=== PATIENT | female | born 1980 | race Caucasian/White ===

== ENCOUNTER 2019-02-12 18:43 | Inpatient (IN) | payer MEDICAID ==
[~2019-02-12] VITALS: Ht 162.6 cm; Wt 77.0 kg
[2019-02-13] VITALS (12 sets, daily range): BP systolic 89–120; BP diastolic 49–81
[2019-02-13] MEDS ORDERED: SODIUM CHLORIDE 0.9% 1,000 ML IVB ONE (00:33)
[2019-02-13 01:05] LABS: Alanine Aminotransferase 13 U/L (13-56); Albumin 3.3 g/dL (3.4-5.0); Anion Gap 11 (5-15); Aspartate Aminotransferase 12 U/L (15-37); BUN/Creatinine Ratio 12.5; Blood Urea Nitrogen 8 mg/dL (7-18); Calcium 7.9 mg/dL (8.5-10.1); Carbon Dioxide 22 mmol/L (21-32); Chloride 108 mmol/L (98-107); GFR African American 132 mL/min; GFR Non-African American 109 mL/min; Glucose 93 mg/dL (74-106); Potassium 3.4 mmol/L (3.5-5.1); Sodium 141 mmol/L (136-145)
[2019-02-13 01:07] LABS: Alkaline Phosphatase 83 U/L (45-117); Bilirubin, Total 0.5 mg/dL (0.2-1.0)
[2019-02-13 01:19] LABS: Lymphocytes # (auto) 1.4 uL; Nucleated Red Blood Cells % 0.2 %
[2019-02-13 01:20] LABS: Basophils # (auto) 0.5 uL; Basophils % (auto) 5.9 % (0.0-2.0); Eosinophils # (auto) 0.3 uL; Eosinophils % (auto) 3.8 % (0.0-7.0); Hematocrit 20.9 % (36.0-46.0); Lymphocytes % (auto) 16.9 % (10.0-50.0); Mean Corpuscular Hemoglobin 16.8 pg (28.0-32.0); Mean Corpuscular Hgb Conc. 26.9 g/dL (32.0-36.0); Mean Corpuscular Volume 62.3 fL (80.0-100.0); Monocytes # (auto) 0.5 uL; Monocytes % (auto) 6.3 % (0.0-12.0); Neutrophils # (auto) 5.6 uL; Neutrophils % (auto) 67.1 % (37.0-80.0); Platelet Count (auto) 306 10^3/uL (140-450); Red Blood Cells 3.35 10^6/uL (4.0-5.20); White Blood Cell 8.4 10^3/uL (4.4-10.8)
[2019-02-13 01:27] LABS: Red Cell Distribution Width 22.5 % (11.8-14.3)
[2019-02-13 01:29] LABS: Hemoglobin 5.6 g/dL (12.2-16.2)
[2019-02-13] MEDS ORDERED: SODIUM CHLORIDE 0.9% 1,000 ML IV ONE (02:15)
[2019-02-13 03:10] LABS: Hematocrit 18.7 % (36.0-46.0)
[2019-02-13 03:37] LABS: Hemoglobin 5.2 g/dL (12.2-16.2)
[2019-02-13] MEDS ORDERED: diphenhdrAMINE HCL 25 MG CAP PO ONE (04:15)
[2019-02-13] MEDS ORDERED: POTASSIUM CHL 10 Meq TABLET PO ONE (05:00)
[2019-02-13] MEDS ORDERED: CALCIUM ACETATE 667 MG CAP PO ONE (05:00)
[2019-02-13] MEDS ORDERED: ONDANSETRON HCL 4 MG/2 ML VIAL IV PRN (06:15)
[2019-02-13] MEDS ORDERED: TEMAZEPAM 15 MG CAP PO PRN (06:15)
--- NOTE | 2019-02-13 08:30 | NUR ---
RECEIVED REPORT FROM [facility].
--- NOTE | 2019-02-13 08:38 | NUR ---
MS ADMIT FROM ER PT ARRIVED TO FLOOD VIA WHEEL CHAIR ACCOMPANIED BY ER REEL MAN. PT AWAKE AND ALERT. NO S/S OF ANY DISTRESS OR SOB. PT DENIES HAVING ANY PAIN AT THIS TIME. BED IN LOWEST AND LOCKED POSITION WITH SIDE RAILS UP X2. INSTRUCTED PT ON POC AND TO CALL FOR ASSIST PRN. WILL CONTINUE TO MONITOR FOR CHANGES Q1HR AND PRN.
[2019-02-13] MEDS: FAMOTIDINE 20 MG TAB PO SCH ×2 (10:04→21:38)
[2019-02-13 11:03] LABS: Hematocrit 28.1 % (36.0-46.0); Hemoglobin 8.2 g/dL (12.2-16.2)
--- NOTE | 2019-02-13 11:35 | NUR ---
RECEIVED CALL FROM DR. DAHL. AWARE OF PT HGB LEVEL. NEW ORDERS RECEIVED, READ BACK AND VERIFIED.
[2019-02-13 14:54] LABS: Urine Bacteria NONE SEEN /hpf (None Seen); Urine Blood 2+ /uL (Negative); Urine Specific Gravity 1.007 (1.001-1.035); Urine WBC 4 /hpf (0 - 5)
[2019-02-13 15:09] LABS: Alcohol, Urine < 3.0 mg/dL (0-5); Amphetamine Screen, Urine POSITIVE (NEGATIVE); Barbiturate Scree,Urine NEGATIVE (NEGATIVE); Benzodiazephine Screen, Urine NEGATIVE (NEGATIVE); Cannabinoid Screen, Urine POSITIVE (NEGATIVE); Cocaine Screen, Urine NEGATIVE (NEGATIVE); Opiate Scree,Urine NEGATIVE (NEGATIVE); Phencyclidine Screen, Urine NEGATIVE (NEGATIVE)
[2019-02-13] MEDS: FERROUS SULFATE 325 MG TAB PO SCH ×2 (15:10→21:37)
--- NOTE | 2019-02-13 19:11 | NUR ---
Closing shift note Patient resting in bed. No S/S of distress or SOB noted. Bed in lowest locked position, side rails up x 2, call light within reach. Endorsed care to machinist 2nd shift RN.
--- NOTE | 2019-02-13 19:48 | NUR ---
RECEIVED PATIENT FROM DAY SHIFT RN. PATIENT RESTING IN BED WITH EYES CLOSED. NO S/S OF DISTRESS AND PAIN NOTED. WILL COME BACK TO CHECK PATIENT LATER. BED IN LOWEST POSITION WITH SIDE RAILS UP X 2. CALL [facility] WITHIN REACH. ALARM ON. CONTINUE TO MONITOR FOR CHANGES Q1H AND PRN.
--- NOTE | 2019-02-13 20:52 | NUR ---
PATIENT GOT UP TO BATHROOM WITH STEADY GAIT. NO S/S OF DISTRESS NOTED. POC INSTRUCTED AND ENCOURAGED PATIENT TO CALL FOR GYMNASTIC COACH IF NEEDED. PATIENT VERBALIZED UNDERSTANDING. CONTINUE CARE.
--- NOTE | 2019-02-14 02:53 | NUR ---
PATIENT SLEEPING. NO S/S OF DISTRESS NOTED. CONTINUE CARE.
--- NOTE | 2019-02-14 05:05 | NUR ---
PATIENT SLEEPING. NO S/S OF DISTRESS NOTED. CONTINUE CARE.
[2019-02-14 05:27] VITALS: BP 102/58
[2019-02-14] MEDS: FERROUS SULFATE 325 MG TAB PO SCH ×3 (06:02→21:28)
--- NOTE | 2019-02-14 07:40 | NUR ---
Opening Shift Note Assumed care of patient, awake and alert. No S/S of distress or SOB. Pt denies any pain at this time. Bed in lowest and locked position with side rails up x2. Instructed on POC and to call for assist PRN, will continue to monitor for changes Q1hr and PRN.
--- NOTE | 2019-02-14 07:46 | NUR ---
DR. DAHL AT BEDSIDE DISCUSSING POC WITH PATIENT.
[2019-02-14 08:00] VITALS: BP 104/67
[2019-02-14 08:46] LABS: Calcium 8.4 mg/dL (8.5-10.1); Magnesium 2.3 mg/dL (1.6-2.6); Potassium 3.8 mmol/L (3.5-5.1)
[2019-02-14 08:48] LABS: BUN/Creatinine Ratio 9.7
[2019-02-14 09:23] LABS: Hemoglobin 7.8 g/dL (12.2-16.2); Mean Corpuscular Hemoglobin 20.2 pg (28.0-32.0); Monocytes # (auto) 0.5 uL
[2019-02-14 09:25] LABS: Basophils # (auto) 0.1 uL; Basophils % (auto) 0.8 % (0.0-2.0); Eosinophils # (auto) 0.5 uL; Eosinophils % (auto) 5.6 % (0.0-7.0); Hematocrit 26.4 % (36.0-46.0); Lymphocytes # (auto) 1.4 uL; Lymphocytes % (auto) 15.7 % (10.0-50.0); Mean Corpuscular Hgb Conc. 29.5 g/dL (32.0-36.0); Mean Corpuscular Volume 68.3 fL (80.0-100.0); Monocytes % (auto) 5.3 % (0.0-12.0); Neutrophils # (auto) 6.6 uL; Neutrophils % (auto) 72.6 % (37.0-80.0); Nucleated Red Blood Cells % 0.2 %; Platelet Count (auto) 289 10^3/uL (140-450); Red Blood Cells 3.87 10^6/uL (4.0-5.20)
[2019-02-14 09:30] LABS: Red Cell Distribution Width 28.5 % (11.8-14.3)
[2019-02-14] MEDS: FAMOTIDINE 20 MG TAB PO SCH ×2 (10:01→21:27)
--- NOTE | 2019-02-14 10:12 | NUR ---
DR. GARCIA AT BED SIDE DISCUSSING POC WITH PT.
[2019-02-14 12:00] VITALS: BP 108/64
[2019-02-14 17:00] VITALS: BP 99/54
--- NOTE | 2019-02-14 19:20 | NUR ---
Closing shift note Patient resting in bed. No S/S of distress or SOB noted. Bed in lowest locked position, side rails up x 2, call light within reach. Endorsed care to night stocker RN.
--- NOTE | 2019-02-14 19:35 | NUR ---
Opening Shift Note Assumed care of patient, awake and alert. No S/S of distress/SOB or pain. Bed locked in lowest position, side rails upx2, call light within reach. Instructed on POC and to call for assist PRN, will continue to monitor for changes Q1hr and PRN.
[2019-02-14 22:00] VITALS: BP 111/60
[2019-02-15 05:00] VITALS: BP 119/60
[2019-02-15] MEDS: FERROUS SULFATE 325 MG TAB PO SCH ×3 (06:07→21:39)
[2019-02-15 06:31] LABS: Basophils # (auto) 0.1 uL; Basophils % (auto) 0.8 % (0.0-2.0); Nucleated Red Blood Cells % 0.1 %
[2019-02-15 06:32] LABS: Eosinophils # (auto) 0.5 uL; Eosinophils % (auto) 4.1 % (0.0-7.0); Hematocrit 28.2 % (36.0-46.0); Hemoglobin 8.2 g/dL (12.2-16.2); Lymphocytes # (auto) 1.8 uL; Lymphocytes % (auto) 15.9 % (10.0-50.0); Mean Corpuscular Hemoglobin 20.3 pg (28.0-32.0); Mean Corpuscular Hgb Conc. 29.1 g/dL (32.0-36.0); Mean Corpuscular Volume 69.7 fL (80.0-100.0); Monocytes # (auto) 0.7 uL; Monocytes % (auto) 5.9 % (0.0-12.0); Neutrophils # (auto) 8.5 uL; Neutrophils % (auto) 73.3 % (37.0-80.0); Platelet Count (auto) 338 10^3/uL (140-450); Red Blood Cells 4.05 10^6/uL (4.0-5.20); White Blood Cell 11.6 10^3/uL (4.4-10.8)
--- NOTE | 2019-02-15 07:20 | NUR ---
Closing Note Patient lying in bed, eyes closed, respirations even and unlabored, appears asleep. No s/s of distress. Care endorsed to dayshift RN.
[2019-02-15 08:00] VITALS: BP 112/59
[2019-02-15] MEDS: FAMOTIDINE 20 MG TAB PO SCH ×2 (09:25→21:39)
[2019-02-15 12:00] VITALS: BP 97/57
[2019-02-15 17:00] VITALS: BP 108/58
--- NOTE | 2019-02-15 19:30 | NUR ---
Opening Shift Note Assumed care of patient, eyes closed, respirations even and unlabored, appears asleep. Patient awakens to name and touch. No S/S of distress/SOB or pain. Bed locked in lowest position, side rails up x2, call light within reach. Instructed on POC and to call for assist PRN, will continue to monitor for changes Q1hr and PRN.
[2019-02-15 22:00] VITALS: BP 101/59
[2019-02-16 04:57] VITALS: BP 103/68
[2019-02-16] MEDS: FERROUS SULFATE 325 MG TAB PO SCH ×2 (05:49→14:30)
--- NOTE | 2019-02-16 06:59 | NUR ---
Closing Note Patient lying in bed, eyes closed, respirations even and unlabored, appears asleep. No s/s of distress. Care endorsed to dayshift RN.
[2019-02-16 08:33] LABS: Basophils # (auto) 0.1 uL; Basophils % (auto) 0.7 % (0.0-2.0); Lymphocytes # (auto) 1.4 uL; Mean Corpuscular Volume 70.8 fL (80.0-100.0); Monocytes # (auto) 0.5 uL; Nucleated Red Blood Cells % 0.1 %
[2019-02-16 08:36] LABS: Eosinophils # (auto) 0.4 uL; Eosinophils % (auto) 4.3 % (0.0-7.0); Hematocrit 28.1 % (36.0-46.0); Hemoglobin 8.1 g/dL (12.2-16.2); Lymphocytes % (auto) 13.9 % (10.0-50.0); Mean Corpuscular Hemoglobin 20.5 pg (28.0-32.0); Monocytes % (auto) 5.1 % (0.0-12.0); Neutrophils # (auto) 7.7 uL; Platelet Count (auto) 317 10^3/uL (140-450); Red Blood Cells 3.96 10^6/uL (4.0-5.20); White Blood Cell 10.1 10^3/uL (4.4-10.8)
[2019-02-16 08:55] LABS: Red Cell Distribution Width 29.3 % (11.8-14.3)
[2019-02-16 09:00] VITALS: BP 112/70
[2019-02-16] MEDS: FAMOTIDINE 20 MG TAB PO SCH (09:25)
[2019-02-16 13:00] VITALS: BP 101/62
[2019-02-16 14:47] VITALS: BP 101/62
--- NOTE | 2019-02-16 15:30 | NUR ---
PATIENT ROUNDS PATIENT NOT IN ROOM AT THIS TIME. PAGED PATIENT BACK TO ROOM TWICE. STILL NOT IN HER ROOM. WILL INFORM SECURITY. WILL INFORM CHARGE NURSE.
--- NOTE | 2019-02-16 15:38 | NUR ---
INFORMED SECURITY. SECURITY MAKING ROUNDS AT THIS TIME.
--- NOTE | 2019-02-16 15:48 | NUR ---
SECURITY STATED PATIENT WAS NOT FOUND DURING ROUNDS. INFORMED CHARGE NURSE. WILL CALL [facility].
--- NOTE | 2019-02-16 15:49 | NUR ---
CALLED [facility] SPOKE WITH SAURABH. INFORMED OF PATIENT ELOPEMENT. STATED THEY WILL DO A WELL CHECK.
== END 2019-02-16 15:55 | disposition home or self-care (01) | DRG 532 ==
LOC: ER 18:43 → OVERFLOW 18:44 → CENTRAL 02-13 08:45
PROVIDERS: ADMIT Nurse Practitioner; ATTEND Internal Medicine
PROC: 30233N1 Transfusion of Nonautologous Red Blood Cells into Peripheral Vein, Percutaneous Approach (ICD-10-PCS; principal; 2019-02-13)
DX: D25.9 Leiomyoma of uterus, unspecified (principal); E83.51 Hypocalcemia; D64.9 Anemia, unspecified; N93.8 Other specified abnormal uterine and vaginal bleeding; E87.6 Hypokalemia; E66.9 Obesity, unspecified; Z68.29 Body mass index [BMI] 29.0-29.9, adult; D75.89 Other specified diseases of blood and blood-forming organs; N92.0 Excessive and frequent menstruation with regular cycle; F17.210 Nicotine dependence, cigarettes, uncomplicated; F15.10 Other stimulant abuse, uncomplicated; Z98.51 Tubal ligation status; Z88.5 Allergy status to narcotic agent; Z88.8 Allergy status to other drugs, medicaments and biological substances; Z88.6 Allergy status to analgesic agent; Z79.899 Other long term (current) drug therapy
CPT/HCPCS: 36415; 36430; 71045; 76830; 76856; 80048; 80053; 80307; 81001; 83735; 84439; 84443; 84702; 85014; 85018; 85025; 85384; 85610; 86850; 86900; 86901; 86922; 94761; 96360; 96361; G0378